=== PATIENT | female | born 1935 | race Caucasian/White ===

== ENCOUNTER 2020-06-16 07:11 | Inpatient (IN) ==
[2020-06-16] MEDS ORDERED: SODIUM CHLORIDE 0.9% 500 ML IV STA (07:31)
[2020-06-16 08:18] LABS: Basophils # 0.1 10*3/uL (0.0-0.2); Basophils % 0.2 % (0.0-0.8); Hematocrit 38.1 VOL% (35.7-47.0); Hemoglobin 12.5 GM/DL (12.0-16.0); Immature Granulocytes % 0.8 %; Immature Granulocytes Absolute 0.18 #; Lymphocytes # 0.7 10*3/uL (1.4-4.0); Lymphocytes % 3.1 % (21.3-54.2); Mean Corpuscular HGB Conc 32.8 GM/DL (32-36); Mean Corpuscular Volume 90.1 FL (87-102); Mean Platelet Volume 10.2 FL (9.6-12.0); Monocytes % 11.6 % (1.7-12.7); Neutrophils % 84.3 % (38.7-73.9); Platelet Count 275 T/CUMM (130-400); Red Blood Count 4.23 MC/CUMM (3.8-5.5); Red Cell Distribution Width 12.3 % (9.3-17.3); White Blood Count 21.6 T/CUMM (4-12)
[2020-06-16 08:36] LABS: PT Patient Result 11.2 SECS (9.8-11.9); Partial Thromboplastin Time 30.7 SECS (23.9-33.8)
[2020-06-16 08:41] LABS: Band Neutrophils 1 % (0-10); Hypochromasia 1+; Lymphocytes 2 % (20-55); Microcytosis 1+; Platelet Estimate Adequate; Segmented Neutrophils 81 % (50-85); Total Cells Counted 100
[2020-06-16 08:42] LABS: Albumin 3.2 G/DL (3.4-5.0); Bilirubin,Total 1.2 MG/DL (0.2-1.0); Calcium 9.2 MG/DL (8.5-10.1); Osmolality,Calculated 267.4 MOS/KG (273-304); Total Protein 7.1 G/DL (6.4-8.3)
[2020-06-16] MEDS ORDERED: LEVOFLOXACIN INJ 500 MG in PREMIX 1 EACH IV STA (08:44)
[2020-06-16] MEDS ORDERED: DEXAMETHASONE 4 MG/1 ML VIAL IV STA (08:51)
[2020-06-16] MEDS ORDERED: ONDANSETRON 4 MG/2 ML VIAL IV PRN (08:59)
[2020-06-16] MEDS: SODIUM CHLORIDE 0.9% 1,000 ML IV SCH ×2 (09:46→19:15)
[2020-06-16] MEDS: PANTOPRAZOLE 40 MG TABLET PO SCH (09:46)
[2020-06-16] MEDS: DOCUSATE SODIUM 100 MG CAPSULE PO SCH ×2 (09:46→23:13)
[2020-06-16] MEDS ORDERED: LEVOFLOXACIN INJ 500 MG in PREMIX 1 EACH IV SCH (18:00)
[2020-06-16] MEDS: SIMVASTATIN 40 MG TABLET PO SCH (23:13)
[2020-06-16] MEDS: cloNIDine 0.1 MG TABLET PO SCH (23:13)
[2020-06-17] MEDS: LEVOTHYROXINE 112 MCG TABLET PO SCH (06:19)
[2020-06-17 06:21] LABS: Basophils % 0.1 % (0.0-0.8); Hematocrit 32.4 VOL% (35.7-47.0); Hemoglobin 10.6 GM/DL (12.0-16.0); Immature Granulocytes % 0.6 %; Lymphocytes # 0.6 10*3/uL (1.4-4.0); Mean Corpuscular HGB Conc 32.7 GM/DL (32-36); Mean Platelet Volume 11.1 FL (9.6-12.0); Monocytes % 8.5 % (1.7-12.7); Neutrophils % 86.8 % (38.7-73.9); Platelet Count 253 T/CUMM (130-400); Red Cell Distribution Width 12.2 % (9.3-17.3)
[2020-06-17 06:27] LABS: Calcium 8.5 MG/DL (8.5-10.1); Osmolality,Calculated 279.5 MOS/KG (273-304)
[2020-06-17 06:33] LABS: Band Neutrophils 1 % (0-10); Hypochromasia 1+; Lymphocytes 9 % (20-55); Microcytosis Slight; Platelet Estimate Adequate; Segmented Neutrophils 81 % (50-85); Total Cells Counted 100
[2020-06-17 06:37] LABS: Alanine Aminotransferase 14 U/L (13-56); Albumin 2.3 G/DL (3.4-5.0); Alkaline Phosphatase 80 U/L (45-117); Aspartate Amino Transferase 12 U/L (0-37); Bilirubin,Total < 0.39 MG/DL (0.2-1.0); Blood Urea Nitrogen 18 MG/DL (7-18); Calcium 8.6 MG/DL (8.5-10.1); Estimated Glom Filtration Rate 58 ML/MIN; Glucose 123 MG/DL (74-106); HDL Cholesterol 44 MG/DL (40-60); Osmolality,Calculated 275.8 MOS/KG (273-304); Risk Ratio 2.34; Thyroid Stimulating Hormone 0.043 uIU/ml (0.358-3.74); Total Protein 6.4 G/DL (6.4-8.3); Triglycerides 56 MG/DL (2-150); VLDL CHOLESTEROL 11.2 MG/DL
[2020-06-17] MEDS: SODIUM CHLORIDE 0.9% 1,000 ML IV SCH ×3 (08:55→16:47)
[2020-06-17] MEDS: LEVOFLOXACIN INJ 500 MG in PREMIX 1 EACH IV SCH (08:56)
[2020-06-17] MEDS: PANTOPRAZOLE 40 MG TABLET PO SCH (08:56)
[2020-06-17] MEDS: DOCUSATE SODIUM 100 MG CAPSULE PO SCH ×2 (08:56→20:41)
[2020-06-17] MEDS ORDERED: IRBESARTAN HYDROCHLOROTHIAZIDE PO SCH (09:00)
[2020-06-17] MEDS ORDERED: DEXAMETHASONE 10 MG/1 ML VIAL IV SCH (09:00)
[2020-06-17] MEDS: SIMVASTATIN 40 MG TABLET PO SCH (20:41)
[2020-06-17] MEDS: cloNIDine 0.1 MG TABLET PO SCH (20:41)
[2020-06-18] MEDS: SODIUM CHLORIDE 0.9% 1,000 ML IV SCH ×4 (03:45→20:05)
[2020-06-18] MEDS: LEVOTHYROXINE 112 MCG TABLET PO SCH (05:45)
[2020-06-18 06:12] LABS: Basophils % 0.1 % (0.0-0.8); Hematocrit 30.9 VOL% (35.7-47.0); Immature Granulocytes % 0.6 %; Lymphocytes # 0.6 10*3/uL (1.4-4.0); Lymphocytes % 3.8 % (21.3-54.2); Mean Corpuscular HGB Conc 32.4 GM/DL (32-36); Mean Corpuscular Volume 91.4 FL (87-102); Mean Platelet Volume 11.2 FL (9.6-12.0); Monocytes % 11.4 % (1.7-12.7); Neutrophils % 84.1 % (38.7-73.9); Platelet Count 261 T/CUMM (130-400); Red Blood Count 3.38 MC/CUMM (3.8-5.5); Red Cell Distribution Width 12.3 % (9.3-17.3); White Blood Count 16.3 T/CUMM (4-12)
[2020-06-18 06:34] LABS: Band Neutrophils 1 % (0-10); Hypochromasia 1+; Lymphocytes 3 % (20-55); Microcytosis 1+; Platelet Estimate Adequate; Segmented Neutrophils 83 % (50-85); Total Cells Counted 100
[2020-06-18 06:50] LABS: Albumin 2.1 G/DL (3.4-5.0); Bilirubin,Total 0.7 MG/DL (0.2-1.0); Calcium 8.6 MG/DL (8.5-10.1); Free T4 (Free Thyroxine) 1.31 NG/DL (0.76-1.46); Osmolality,Calculated 282.3 MOS/KG (273-304); Total Protein 6.2 G/DL (6.4-8.3)
[2020-06-18] MEDS: DOCUSATE SODIUM 100 MG CAPSULE PO SCH ×2 (09:50→21:32)
[2020-06-18] MEDS: PANTOPRAZOLE 40 MG TABLET PO SCH (09:50)
[2020-06-18] MEDS: LEVOFLOXACIN INJ 500 MG in PREMIX 1 EACH IV SCH (09:51)
[2020-06-18] MEDS: SIMETHICONE CHEW 80 MG TABLET PO PRN (16:42)
[2020-06-18] MEDS: SIMVASTATIN 40 MG TABLET PO SCH (21:32)
[2020-06-18] MEDS: cloNIDine 0.1 MG TABLET PO SCH (21:32)
[2020-06-18] MEDS: ACETAMINOPHEN 325 MG TABLET PO PRN (21:32)
[2020-06-19 05:42] LABS: Basophils % 0.2 % (0.0-0.8); Eosinophils # 0.2 10*3/uL (0.0-0.87); Hematocrit 33.6 VOL% (35.7-47.0); Hemoglobin 11.1 GM/DL (12.0-16.0); Immature Granulocytes % 0.4 %; Immature Granulocytes Absolute 0.07 #; Lymphocytes % 6.6 % (21.3-54.2); Mean Corpuscular Volume 91.1 FL (87-102); Mean Platelet Volume 10.4 FL (9.6-12.0); Monocytes % 15.1 % (1.7-12.7); Neutrophils % 76.7 % (38.7-73.9); Platelet Count 266 T/CUMM (130-400); Red Blood Count 3.69 MC/CUMM (3.8-5.5); Red Cell Distribution Width 12.6 % (9.3-17.3); White Blood Count 15.7 T/CUMM (4-12)
[2020-06-19] MEDS: LEVOTHYROXINE 112 MCG TABLET PO SCH (05:57)
[2020-06-19] MEDS: SODIUM CHLORIDE 0.9% 1,000 ML IV SCH ×2 (05:58→20:38)
[2020-06-19 06:13] LABS: Albumin 2.1 G/DL (3.4-5.0); Bilirubin,Total 1.1 MG/DL (0.2-1.0); Calcium 8.4 MG/DL (8.5-10.1); Osmolality,Calculated 282.1 MOS/KG (273-304); Total Protein 5.9 G/DL (6.4-8.3)
[2020-06-19] MEDS: ACETAMINOPHEN 325 MG TABLET PO PRN (09:19)
[2020-06-19] MEDS: PANTOPRAZOLE 40 MG TABLET PO SCH (09:21)
[2020-06-19] MEDS: DOCUSATE SODIUM 100 MG CAPSULE PO SCH ×2 (09:21→20:59)
[2020-06-19] MEDS: LEVOFLOXACIN INJ 500 MG in PREMIX 1 EACH IV SCH (09:23)
[2020-06-19] MEDS: FUROSEMIDE 20 MG/2 ML VIAL IV SCH (16:14)
[2020-06-19] MEDS: SIMETHICONE CHEW 80 MG TABLET PO PRN (18:26)
[2020-06-19] MEDS: SIMVASTATIN 40 MG TABLET PO SCH (20:59)
[2020-06-19] MEDS: cloNIDine 0.1 MG TABLET PO SCH (20:59)
[2020-06-20] MEDS: ACETAMINOPHEN 325 MG TABLET PO PRN ×2 (04:25→20:58)
[2020-06-20] MEDS: LEVOTHYROXINE 112 MCG TABLET PO SCH (05:56)
[2020-06-20 06:15] LABS: Basophils # 0.1 10*3/uL (0.0-0.2); Basophils % 0.3 % (0.0-0.8); Eosinophils # 0.1 10*3/uL (0.0-0.87); Eosinophils % 0.6 % (0.00-10.9); Hematocrit 36.8 VOL% (35.7-47.0); Hemoglobin 11.6 GM/DL (12.0-16.0); Immature Granulocytes Absolute 0.35 #; Lymphocytes # 1.1 10*3/uL (1.4-4.0); Lymphocytes % 6.6 % (21.3-54.2); Mean Corpuscular HGB Conc 31.5 GM/DL (32-36); Mean Corpuscular Volume 93.6 FL (87-102); Mean Platelet Volume 10.9 FL (9.6-12.0); Monocytes % 12.7 % (1.7-12.7); Neutrophils % 77.8 % (38.7-73.9); Platelet Count 338 T/CUMM (130-400); Red Blood Count 3.93 MC/CUMM (3.8-5.5); Red Cell Distribution Width 12.7 % (9.3-17.3); White Blood Count 17.2 T/CUMM (4-12)
[2020-06-20 06:49] LABS: Calcium 9.5 MG/DL (8.5-10.1); Osmolality,Calculated 278.4 MOS/KG (273-304)
[2020-06-20] MEDS: DOCUSATE SODIUM 100 MG CAPSULE PO SCH ×2 (09:02→20:58)
[2020-06-20] MEDS: PANTOPRAZOLE 40 MG TABLET PO SCH (09:02)
[2020-06-20] MEDS: FUROSEMIDE 20 MG/2 ML VIAL IV SCH (09:02)
[2020-06-20] MEDS: LEVOFLOXACIN INJ 500 MG in PREMIX 1 EACH IV SCH (09:05)
[2020-06-20] MEDS: SODIUM CHLOR 0.9% KCL 20 MEQ 20 MEQ/1,000 ML BAG IV SCH (10:32)
[2020-06-20] MEDS: FUROSEMIDE 20 MG TABLET PO SCH (15:59)
[2020-06-20] MEDS: POTASSIUM CHLORIDE 8 MEQ CAPSULE PO SCH (20:58)
[2020-06-20] MEDS: cloNIDine 0.1 MG TABLET PO SCH (20:58)
[2020-06-20] MEDS: SIMVASTATIN 40 MG TABLET PO SCH (20:58)
[2020-06-21 05:29] LABS: Basophils # 0.1 10*3/uL (0.0-0.2); Basophils % 0.3 % (0.0-0.8); Eosinophils # 0.3 10*3/uL (0.0-0.87); Eosinophils % 2.1 % (0.00-10.9); Hematocrit 35.9 VOL% (35.7-47.0); Hemoglobin 11.2 GM/DL (12.0-16.0); Immature Granulocytes % 1.2 %; Immature Granulocytes Absolute 0.19 #; Lymphocytes % 6.3 % (21.3-54.2); Mean Corpuscular HGB Conc 31.2 GM/DL (32-36); Mean Corpuscular Volume 93.7 FL (87-102); Mean Platelet Volume 11.6 FL (9.6-12.0); Monocytes % 12.2 % (1.7-12.7); Neutrophils % 77.9 % (38.7-73.9); Platelet Count 278 T/CUMM (130-400); Red Blood Count 3.83 MC/CUMM (3.8-5.5); Red Cell Distribution Width 12.8 % (9.3-17.3); White Blood Count 16.5 T/CUMM (4-12)
[2020-06-21 06:05] LABS: Calcium 9.5 MG/DL (8.5-10.1); Osmolality,Calculated 281.3 MOS/KG (273-304)
[2020-06-21] MEDS: LEVOTHYROXINE 112 MCG TABLET PO SCH (06:21)
[2020-06-21] MEDS: SODIUM CHLOR 0.9% KCL 20 MEQ 20 MEQ/1,000 ML BAG IV SCH (06:21)
[2020-06-21] MEDS: ACETAMINOPHEN 325 MG TABLET PO PRN (06:34)
[2020-06-21] MEDS: DOCUSATE SODIUM 100 MG CAPSULE PO SCH ×2 (09:13→21:10)
[2020-06-21] MEDS: POTASSIUM CHLORIDE 8 MEQ CAPSULE PO SCH ×2 (09:13→21:10)
[2020-06-21] MEDS: PANTOPRAZOLE 40 MG TABLET PO SCH (09:13)
[2020-06-21] MEDS: FUROSEMIDE 20 MG TABLET PO SCH ×2 (09:13→16:04)
[2020-06-21] MEDS: LEVOFLOXACIN INJ 500 MG in PREMIX 1 EACH IV SCH (09:13)
[2020-06-21] MEDS: SIMETHICONE CHEW 80 MG TABLET PO PRN (12:39)
[2020-06-21] MEDS: ALBUTEROL/IPRATROPIUM 3 ML NEB RESP TX SCH (19:56)
[2020-06-21] MEDS: cloNIDine 0.1 MG TABLET PO SCH (21:10)
[2020-06-21] MEDS: SIMVASTATIN 40 MG TABLET PO SCH (21:10)
[2020-06-22] MEDS: ALBUTEROL/IPRATROPIUM 3 ML NEB RESP TX SCH ×4 (01:55→20:03)
[2020-06-22] MEDS: SODIUM CHLOR 0.9% KCL 20 MEQ 20 MEQ/1,000 ML BAG IV SCH ×3 (03:14→22:14)
[2020-06-22 06:30] LABS: Basophils % 0.2 % (0.0-0.8); Eosinophils # 0.1 10*3/uL (0.0-0.87); Eosinophils % 1.1 % (0.00-10.9); Hematocrit 28.9 VOL% (35.7-47.0); Hemoglobin 9.2 GM/DL (12.0-16.0); Immature Granulocytes % 1.1 %; Immature Granulocytes Absolute 0.13 #; Lymphocytes # 0.7 10*3/uL (1.4-4.0); Mean Corpuscular HGB Conc 31.8 GM/DL (32-36); Mean Corpuscular Volume 92.6 FL (87-102); Mean Platelet Volume 10.5 FL (9.6-12.0); Monocytes % 12.2 % (1.7-12.7); Neutrophils % 79.4 % (38.7-73.9); Platelet Count 321 T/CUMM (130-400); Red Blood Count 3.12 MC/CUMM (3.8-5.5); Red Cell Distribution Width 12.8 % (9.3-17.3); White Blood Count 12.1 T/CUMM (4-12)
[2020-06-22] MEDS: LEVOTHYROXINE 112 MCG TABLET PO SCH (06:40)
[2020-06-22 06:54] LABS: Albumin 1.6 G/DL (3.4-5.0); Bilirubin,Total 0.6 MG/DL (0.2-1.0); Calcium 8.6 MG/DL (8.5-10.1); Osmolality,Calculated 279.3 MOS/KG (273-304); Total Protein 5.4 G/DL (6.4-8.3)
[2020-06-22] MEDS: PANTOPRAZOLE 40 MG TABLET PO SCH (09:40)
[2020-06-22] MEDS: POTASSIUM CHLORIDE 8 MEQ CAPSULE PO SCH ×2 (09:40→20:57)
[2020-06-22] MEDS: DOCUSATE SODIUM 100 MG CAPSULE PO SCH ×2 (09:40→20:57)
[2020-06-22] MEDS: FUROSEMIDE 20 MG TABLET PO SCH ×2 (09:41→15:21)
[2020-06-22] MEDS: LEVOFLOXACIN INJ 500 MG in PREMIX 1 EACH IV SCH (09:41)
[2020-06-22] MEDS: SIMETHICONE CHEW 80 MG TABLET PO PRN (15:29)
[2020-06-22] MEDS: SIMVASTATIN 40 MG TABLET PO SCH (20:57)
[2020-06-23] MEDS: ALBUTEROL/IPRATROPIUM 3 ML NEB RESP TX SCH ×2 (00:10→07:29)
[2020-06-23] MEDS: LEVOTHYROXINE 112 MCG TABLET PO SCH (06:18)
[2020-06-23 07:12] LABS: Basophils % 0.2 % (0.0-0.8); Eosinophils # 0.1 10*3/uL (0.0-0.87); Eosinophils % 0.3 % (0.00-10.9); Hematocrit 30.3 VOL% (35.7-47.0); Hemoglobin 9.8 GM/DL (12.0-16.0); Immature Granulocytes % 1.3 %; Immature Granulocytes Absolute 0.23 #; Lymphocytes # 0.8 10*3/uL (1.4-4.0); Lymphocytes % 4.5 % (21.3-54.2); Mean Corpuscular HGB Conc 32.3 GM/DL (32-36); Mean Corpuscular Volume 90.4 FL (87-102); Mean Platelet Volume 10.2 FL (9.6-12.0); Neutrophils % 84.7 % (38.7-73.9); Platelet Count 360 T/CUMM (130-400); Red Blood Count 3.35 MC/CUMM (3.8-5.5); Red Cell Distribution Width 12.9 % (9.3-17.3)
[2020-06-23 08:04] VITALS: BP 142/62
[2020-06-23 08:48] LABS: Anisocytosis 1+; Band Neutrophils 10 % (0-10); Lymphocytes 8 % (20-55); Metamyelocytes 1 %; Platelet Estimate Normal; Segmented Neutrophils 73 % (50-85); Total Cells Counted 100
[2020-06-23] MEDS: FUROSEMIDE 20 MG TABLET PO SCH (08:49)
[2020-06-23] MEDS: DOCUSATE SODIUM 100 MG CAPSULE PO SCH (08:49)
[2020-06-23] MEDS: PANTOPRAZOLE 40 MG TABLET PO SCH (08:49)
[2020-06-23] MEDS: POTASSIUM CHLORIDE 8 MEQ CAPSULE PO SCH (08:50)
[2020-06-23] MEDS: SIMETHICONE CHEW 80 MG TABLET PO PRN (08:50)
[2020-06-23] MEDS ORDERED: LEVOFLOXACIN 500 MG TABLET PO SCH (09:00)
== END 2020-06-23 11:03 | disposition home or self-care (01) | DRG 194 ==
LOC: EDBD → EDUNIT# → N.ED 07:11 → N.EDINP 08:59 → N.2E 21:02 → N.4E 06-17 17:36
PROVIDERS: ADMIT Family Medicine; ATTEND Family Medicine